=== PATIENT | male | born 1955 | race Caucasian/White ===

== ENCOUNTER 2021-02-10 17:01 | Emergency (ER) | payer MEDICARE, OTHER ==
[~2021-02-10] VITALS: Ht 170 cm; Wt 66.6 kg
[~2021-02-10 17:01] MED LIST: LNS30CCR; LVF250T; MTR250T
[2021-02-10] MEDS ORDERED: meTOprolol TARTRATE 25 MG (LOPRESSOR) TABLET PO ONE (17:15)
[2021-02-10] MEDS ORDERED: ASPIRIN 81 MG CHEW (CHILDREN'S ASA) PO ONE (17:15)
--- NOTE | 2021-02-10 17:21 | ED Chest Pain ---
General Chief Complaint: Chest Pain Stated Complaint: CHEST TIGHTNESS IRR HEART RATE/BP Nursing Triage Note: Patient states this morning he began experiencing chest tightness. He states that he has been experiencing ringing in his ears and states his blood pressure has been high. He states the pain radiates into his right shoulder. Nursing Sepsis Screen: No Definite Risk Source: patient Exam Limitations: no limitations History of Present Illness Date Seen by Provider: February 10, 2021 Time Seen by Provider: 17:19 Initial Comments To ER with chest tightness this morning. He awakened with this this morning and it persisted throughout most of the day accompanied by palpitations. Currently he does not have any chest tightness. He does not have any history of coronary stenting. He does not smoke. Does have a history of high cholesterol and hypertension. He also noted that he did not feel quite right after he went jogging with his while in [place] yesterday. 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 NTG SL MAINTENANCE MECHANIC TELEPHONE: No Allergies and Home Medications Allergies Coded Allergies: No Known Drug Allergies (Unverified , 02/10/21) Patient Home Medication List Home Medication List Reviewed: Yes Review of Systems Review of Systems Constitutional: see HPI; No chills, No fever EENTM: No Symptoms Reported Respiratory: No Symptoms Reported Cardiovascular: See HPI, Chest Pain Gastrointestinal: No Symptoms Reported Genitourinary: No Symptoms Reported Musculoskeletal: no symptoms reported Skin: no symptoms reported Psychiatric/Neurological: No Symptoms Reported Endocrine: No Symptoms Reported Hematologic/Lymphatic: No Symptoms Reported Past Iujxcnw-Wwlnqy-Vfcqtt Hx Patient Social History Alcohol Use: Denies Use Smoking Status: Never a Smoker Recent Infectious Disease Expo: No Recent Hopitalizations: No Seasonal Allergies Seasonal Allergies: No Past Medical History Surgeries: Yes Appendectomy, Gallbladder Respiratory: No Cardiac: Yes Hypertension Neurological: No Reproductive Disorders: No Sexually Transmitted Disease: No Genitourinary: No Gastrointestinal: No Musculoskeletal: No Endocrine: No HEENT: No Cancer: No Psychosocial: No Integumentary: No Blood Disorders: No Physical Exam Vital Signs Vital Signs - First Documented 02/10/21 17:11 Pulse 98 Resp 16 B/P (MAP) 151/94 (113) Pulse Ox 98 O2 Delivery Room Air Capillary Refill : Less Than 3 Seconds Height, Weight, BMI Height: '" Weight: lbs. oz. kg; 23.00 BMI Method: General Appearance: No Apparent Distress, WD/WN Respiratory: Lungs Clear, Normal Breath Sounds, No Accessory Muscle Use, No Respiratory Distress Cardiovascular: Regular Rate, Rhythm, Normal Peripheral Pulses Gastrointestinal: Normal Bowel Sounds, Non Tender, Soft Neurologic/Psychiatric: Alert, Oriented x3 Skin: Normal Color, Warm/Dry Progress/Results/Core Measures Results/Orders Lab Results Laboratory Tests Test 02/10/21 17:11 02/10/21 19:10 Range/Units White Blood Count 8.0 4.3-11.0 10^3/uL Red Blood Count 4.54 4.30-5.52 10^6/uL Hemoglobin 14.7 13.3-17.7 g/dL Hematocrit 42 40-54 % Mean Corpuscular Volume 92 80-99 fL Mean Corpuscular Hemoglobin 32 25-34 pg Mean Corpuscular Hemoglobin Concent 35 32-36 g/dL Red Cell Distribution Width 11.6 10.0-14.5 % Platelet Count 329 130-400 10^3/uL Mean Platelet Volume 9.9 9.0-12.2 fL Immature Granulocyte % (Auto) 0 % Neutrophils (%) (Auto) 64 42-75 % Lymphocytes (%) (Auto) 26 12-44 % Monocytes (%) (Auto) 8 0-12 % Eosinophils (%) (Auto) 1 0-10 % Basophils (%) (Auto) 1 0-10 % Neutrophils # (Auto) 5.1 1.8-7.8 10^3/uL Lymphocytes # (Auto) 2.0 1.0-4.0 10^3/uL Monocytes # (Auto) 0.6 0.0-1.0 10^3/uL Eosinophils # (Auto) 0.1 0.0-0.3 10^3/uL Basophils # (Auto) 0.1 0.0-0.1 10^3/uL Immature Granulocyte # (Auto) 0.0 0.0-0.1 10^3/uL Prothrombin Time 12.9 12.2-14.7 SEC INR Comment 0.9 0.8-1.4 Activated Partial Thromboplast Time 29 24-35 SEC Sodium Level 138 135-145 MMOL/L Potassium Level 4.0 3.6-5.0 MMOL/L Chloride Level 106 98-107 MMOL/L Carbon Dioxide Level 19 L 21-32 MMOL/L Anion Gap 13 5-14 MMOL/L Blood Urea Nitrogen 12 7-18 MG/DL Creatinine 1.03 0.60-1.30 MG/DL Estimat Glomerular Filtration Rate > 60 BUN/Creatinine Ratio 12 Glucose Level 128 H 70-105 MG/DL Calcium Level 9.1 8.5-10.1 MG/DL Corrected Calcium 9.0 8.5-10.1 MG/DL Magnesium Level 2.3 1.6-2.4 MG/DL Total Bilirubin 0.4 0.1-1.0 MG/DL Aspartate Amino Transf (AST/SGOT) 20 5-34 U/L Alanine Aminotransferase (ALT/SGPT) 16 0-55 U/L Alkaline Phosphatase 78 40-136 U/L Myoglobin 27.8 10.0-92.0 NG/ML Troponin I < 0.028 < 0.028 <0.028 NG/ML B-Type Natriuretic Peptide < 10.0 <100.0 PG/ML Total Protein 7.6 6.4-8.2 GM/DL Albumin 4.1 3.2-4.5 GM/DL My Orders Orders - ONOFRE BUNN APRN Cbc With Automated Diff (02/10/21 17:12) Magnesium (02/10/21 17:12) Chest 1 View, Ap/Pa Only (02/10/21 17:12) Ekg Tracing (02/10/21 17:12) Comprehensive Metabolic Panel (02/10/21 17:12) Myoglobin Serum (02/10/21 17:12) Protime With Inr (02/10/21 17:12) Partial Thromboplastin Time (02/10/21 17:12) O2 (02/10/21 17:12) Monitor-Rhythm Ecg Trace Only (02/10/21 17:12) Lipid Panel (02/11/21 06:00) Ed Iv/Invasive Line Start (02/10/21 17:12) BNP (02/10/21 17:12) Aspirin Chewable Tablet (Baby Aspirin Ch (02/10/21 17:15) Metoprolol Tartrate (Ir) Tab (Lopressor (02/10/21 17:15) Troponin I (02/10/21 17:11) Troponin I (5/23/21 19:17) Medications Given in ED Current Medications Medications Dose Ordered Sig/Shabbir Route Start Time Stop Time Status Last Admin Dose Admin Aspirin 243 mg ONCE ONCE PO 02/10/21 17:15 02/10/21 17:19 DC 02/10/21 17:41 243 MG Vital Signs/I&O 02/10/21 02/10/21 02/10/21 17:11 17:11 17:13 Pulse 98 Resp 16 B/P (MAP) 151/94 (113) Pulse Ox 98 98 O2 Delivery Room Air Room Air Room Air Blood Pressure Mean: 113 Departure Communication (Admissions) Still feeling okay, blood pressure is down to 124/81 heart rate 81. No ectopy or tachycardia here. He and his report that he will have palpitations that come and go at various times of the day. Occasionally he will wake up at night shaking and feeling like his heart is beating out of his chest. 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 Alternatively the idea of a paroxysmal atrial fibrillation needs to be entertained given his age and occasio nal palpitations. I will refer him to cardiology. Impression Primary Impression: Chest pain Additional Impression: Palpitations Departure-Patient Inst. Decision time for Depature: 19:50 Referrals: DAVIDE CRUZ MD FACP FAC CCDS MARIELA LANDA MD Patient Instructions: Palpitations Add. Discharge Instructions: 1. Return to ER for any concerns. Follow-up with a landscape foreman of your choosing. All discharge instructions reviewed with patient and/or family. Voiced understanding. Scripts Alprazolam (Xanax) 0.5 Mg Tablet 0.5 MG PO BID PRN for ANXIETY, #10 TAB Prov: ONOFRE BUNN PATROL DEPUTY SHERIFF 02/10/21 ONOFRE BUNN PATROL DEPUTY SHERIFF February 10, 2021 17:21
[2021-02-10 17:25] LABS: BASOPHILS # (AUTO) 0.1 10^3/uL (0.0-0.1); BASOPHILS % (AUTO) 1 % (0-10); EOSINOPHILS # (AUTO) 0.1 10^3/uL (0.0-0.3); EOSINOPHILS % (AUTO) 1 % (0-10); HEMATOCRIT 42 % (40-54); HEMOGLOBIN 14.7 g/dL (13.3-17.7); LYMPHOCYTES % (AUTO) 26 % (12-44); MEAN CORPUSCULAR HEMOGLOBIN 32 pg (25-34); MEAN CORPUSCULAR HGB CONC 35 g/dL (32-36); MEAN CORPUSCULAR VOLUME 92 fL (80-99); MEAN PLATELET VOLUME 9.9 fL (9.0-12.2); MONOCYTES # (AUTO) 0.6 10^3/uL (0.0-1.0); MONOCYTES % (AUTO) 8 % (0-12); NEUTROPHILS # (AUTO) 5.1 10^3/uL (1.8-7.8); NEUTROPHILS % (AUTO) 64 % (42-75); PLATELET COUNT 329 10^3/uL (130-400)
[2021-02-10 17:32] LABS: ALBUMIN 4.1 GM/DL (3.2-4.5); CHLORIDE 106 MMOL/L (98-107); SODIUM 138 MMOL/L (135-145)
[2021-02-10 17:33] LABS: CALCIUM 9.1 MG/DL (8.5-10.1); INR 0.9 (0.8-1.4); PROTHROMBIN TIME PATIENT 12.9 SEC (12.2-14.7)
[2021-02-10 17:34] LABS: GLUCOSE 128 MG/DL (70-105); TOTAL PROTEIN 7.6 GM/DL (6.4-8.2)
[2021-02-10 17:35] LABS: CARBON DIOXIDE 19 MMOL/L (21-32)
[2021-02-10 17:36] LABS: BILIRUBIN,TOTAL 0.4 MG/DL (0.1-1.0)
[2021-02-10 17:38] LABS: ALKALINE PHOSPHATASE 78 U/L (40-136); CREATININE SERUM 1.03 MG/DL (0.60-1.30); GFR ESTIMATED > 60
[2021-02-10 17:39] LABS: BUN/CREATININE RATIO 12
[2021-02-10 17:41] LABS: ALANINE AMINOTRANSFERASE 16 U/L (0-55); MAGNESIUM 2.3 MG/DL (1.6-2.4)
--- NOTE | 2021-02-10 17:54 | Diagnostic Imaging Report ---
INDICATION: Chest pain. COMPARISON: None available. TECHNIQUE: Single radiograph of the chest dated February 10, 2021. FINDINGS: The cardiac silhouette is within normal limits in size. No significant pulmonary vascular congestion. The lungs are clear. No pleural effusion. No pneumothorax. No acute osseous abnormality. IMPRESSION: No acute cardiopulmonary abnormality. Dictated by: Dictated on workstation # [id number]
[2021-02-10] MEDS ORDERED: ALPR0.5T PO (20:13)
[2021-02-10 20:15] VITALS: BP 138/89
[2021-02-10] MEDS ORDERED: ALPRAZolam 0.5 MG (XANAX) TAB PO SCH (20:15)
== END 2021-02-10 20:21 | disposition home or self-care (01) ==
LOC: EDUNIT# 17:01 → ER 17:08
DX: R07.89 Other chest pain (principal); R00.2 Palpitations; I10 Essential (primary) hypertension
CPT/HCPCS: 36415; 71045; 80053; 83735; 83874; 83880; 84484; 85025; 85610; 85730; 93005; 93041

== ENCOUNTER 2021-07-11 10:30 | Outpatient (RCR) | payer MEDICARE, OTHER ==
[~2021-07-11 10:30] MED LIST changes: -CATHETER FLUSH 10 ML SYR IV PRN; -REGADENOSON 0.4 MG/5 ML SYR (LEXISCAN) IV ONE
--- NOTE | 2021-08-19 11:02 | 30 Day Event Recorder ---
30-DAY EVENT RECORDER 30-DAY MOBILE CARDIAC OUTPATIENT TELEMETRY DATE OF PROCEDURE: 07/11/2021-08/12/2021. INDICATION: Palpitations. PROCEDURE: A 30-day mobile cardiac outpatient telemetry was obtained for a total of 25 days. 26 rhythm strips were presented for review. The study quality is adequate. RESULTS: 1. Baseline sinus rhythm with an average heart rate of 74 bpm, ranging from 50- 120 bpm with rare, isolated premature supraventricular and premature ventricular complexes each representing less than 1% of the total recording time. 2. There were no pauses exceeding 3 seconds in duration. 3. No symptoms appear to have been reported during the test. IMPRESSION: 1. This is a 30-day mobile cardiac outpatient telemetry report that was obtained for total of 25 days. 2. Baseline sinus rhythm with an average heart rate of 74 bpm, ranging from 50- 120 bpm with rare, isolated premature supraventricular and premature ventricular complexes each representing less than 1% of the total recording time. 3. No symptoms appear to have been reported during the test. Certain portions of this document may have been dictated utilizing voice recognition technology. Inherent to this technology, typographical and grammatical errors may exist. As much as I am diligent to identify and correct these mistakes, some errors may remain in the document. DELBERT WELLS JR, MD Aug 19, 2021 11:02
== END 2021-09-20 | disposition home or self-care (01) ==
LOC: CARD 10:30
PROVIDERS: ATTEND Internal Medicine Cardiovascular Disease
DX: R00.2 Palpitations (principal)

== ENCOUNTER → 2021-07-11 | Outpatient (CLI) | payer MEDICARE, OTHER ==
[~2021-07-11] VITALS: Ht 170 cm; Wt 65.0 kg
[~2021-07-11] MED LIST changes: +ALPR0.5T PO; +CATHETER FLUSH 10 ML SYR IV PRN; +REGADENOSON 0.4 MG/5 ML SYR (LEXISCAN) IV ONE
[2021-07-11 09:06] VITALS: BP 147/88
--- NOTE | 2021-07-11 16:43 | NUCLEAR STRESS TEST ---
TREADMILL NUCLEAR STRESS TEST Date of procedure: 07/11/2021. Primary care provider: Ashish Bond MD. Admitting physician: Gavino Norman Jr., MD. INDICATION: Chest pain. BASELINE ELECTROCARDIOGRAM: Sinus rhythm with possible old septal myocardial infarction. STRESS TEST PROCEDURE: The patient was exercised for a total of 9 minutes and 45 seconds of the standard Messi protocol achieving a maximum MET level of 11.3. The resting heart rate was 63 bpm and the peak heart rate was 142 bpm, which represents 92% of the maximum predicted heart rate. The resting blood pressure was 147/88 mmHg and the peak blood pressure was 184/80 mmHg. This represents a normal heart rate and a normal blood pressure response to exercise. The test w as stopped due to []. There was no chest discomfort during the test. There were isolated premature ventricular complexes during the test. There were no significant stress induced electrocardiogram changes. The patient exhibited excellent exercise capacity for age. NUCLEAR PROCEDURE: The patient was administered 10.4 mCi of intravenous technetium 99m Tetrofosmin at rest for the rest images. The patient was subsequently administered 32.2 mCi of intravenous technetium 99 M Tetrofosmin at peak stress for the stress images. Following an appropriate wait after each injection, imaging was obtained. The images were subsequently processed and reformatted in the usual views. Gated imaging was obtained. The image quality was adequate but with some degree of gastrointestinal and motion artifact. CT attenuation correction was used as a adjunct to standard imaging. Both the corrected and uncorrected images were reviewed for interpretation. NUCLEAR RESULTS: There was normal myocardial perfusion in all segments without evidence of infarction or ischemia. There was normal left ventricular chamber size with an end-diastolic volume of 51 mL and an end-systolic volume of 14 mL. There was no evidence of transient ischemic dilatation. The TID ratio was 1.01. There was normal wall motion in all segments with a calculated ejection fraction of 72%. IMPRESSION: 1. Normal heart rate and blood pressure response to exercise. 2. There was no exercise-induced chest discomfort or electrocardiogram changes. 3. There were isolated premature ventricular complexes during the test. 4. The patient exhibited excellent exercise capacity for age at 9 minutes and 45 seconds of the Messi protocol. 5. There was normal myocardial perfusion in all segments without evidence of infarction or ischemia. 6. There was normal wall motion in all segments with a calculated ejection fraction of 72%. Certain portions of this document may have been dictated utilizing voice recognition technology. Inherent to this technology, typographical and grammatical errors may exist. As much as I am diligent to identify and correct these mistakes, some errors may remain in the document. GAVINO NORMAN JR, MD Jul 11, 2021 16:43
== END ==
LOC: CARD 07:22
PROVIDERS: ATTEND Internal Medicine Cardiovascular Disease
DX: R07.9 Chest pain, unspecified (principal)
CPT/HCPCS: 78452; 93017; A9502